=== PATIENT | male | born 1990 | race Hispanic/Latino ===

== ENCOUNTER 2022-11-15 14:35 | Inpatient (IN) | payer OTHER ==
[~2022-11-15] VITALS: Ht 177.8 cm; Wt 82.8 kg
[2022-11-15] MEDS ORDERED: DILTIAZEM 25MG INJ IVP PRN (15:00)
[2022-11-15 15:06] LABS: AMPHET/METH SCREEN,URINE NEGATIVE (NEGATIVE); BARBITURATE SCREEN, URINE NEGATIVE (NEGATIVE); BENZODIAZEPINES SCREEN,URINE NEGATIVE (NEGATIVE); CANNABINOID SCREEN,URINE NEGATIVE (NEGATIVE); COCAINE SCREEN,URINE NEGATIVE (NEGATIVE); OPIATE SCREEN,URINE NEGATIVE (NEGATIVE); PHENCYCLIDINE SCREEN,URINE NEGATIVE (NEGATIVE)
[2022-11-15 16:17] LABS: BASOPHILS % (AUTO) 0.6 % (0.0-5.0); EOSINOPHILS % (AUTO) 2.3 % (0.0-8.0); HEMATOCRIT 43.1 % (42-54); LYMPHOCYTES % (AUTO) 26.7 % (21.0-51.0); MEAN CORPUSCULAR HEMOGLOBIN 28.5 pg (27.0-33.0); MEAN CORPUSCULAR HGB CONC 33.6 g/dL (32.0-36.0); MEAN CORPUSCULAR VOLUME 84.8 fL (79-99); MONOCYTES % (AUTO) 9.9 % (3.0-13.0); NEUTROPHILS % (AUTO) 59.9 % (40.0-77.0); PLATELET COUNT (AUTO) 189 K/uL (130-400); RED BLOOD CELL COUNT(AUTO) 5.08 MIL/uL (4.50-6.20); WHITE BLOOD COUNT (AUTO) 6.5 K/uL (4.8-10.8)
[2022-11-15 16:31] LABS: CREATININE 0.9 mg/dL (0.5-1.5); POTASSIUM 3.7 mmol/L (3.5-5.1)
[2022-11-15 16:44] LABS: ALBUMIN 3.7 g/dL (3.5-5.0); MAGNESIUM 1.8 mg/dL (1.80-2.40); THYROID STIMULATING HORMONE 1.02 uIU/mL (0.36-3.74); TOTAL PROTEIN, SERUM 7.3 g/dL (6.0-8.3)
[2022-11-15] MEDS ORDERED: ACETAMINOPHEN 500 MG TABLET PO PRN (17:30)
[2022-11-15] MEDS: 0.9%NACL 1000ML 500 ML IV SCH (18:01)
[2022-11-15 18:16] LABS: HEMOGLOBIN A1C 5.7 % (4.0-6.0)
[2022-11-16] MEDS: 0.9%NACL 1000ML 500 ML IV SCH ×3 (00:10→13:05)
[2022-11-16 07:13] LABS: BASOPHILS % (AUTO) 0.7 % (0.0-5.0); EOSINOPHILS % (AUTO) 3.4 % (0.0-8.0); HEMATOCRIT 44.9 % (42-54); LYMPHOCYTES % (AUTO) 25.5 % (21.0-51.0); MEAN CORPUSCULAR HEMOGLOBIN 28.5 pg (27.0-33.0); MEAN CORPUSCULAR HGB CONC 33.2 g/dL (32.0-36.0); MEAN CORPUSCULAR VOLUME 85.9 fL (79-99); MONOCYTES % (AUTO) 9.1 % (3.0-13.0); NEUTROPHILS % (AUTO) 60.7 % (40.0-77.0); PLATELET COUNT (AUTO) 200 K/uL (130-400); RED BLOOD CELL COUNT(AUTO) 5.23 MIL/uL (4.50-6.20); RED CELL DISTRIBUTION WIDTH 13.2 % (11.0-15.5); WHITE BLOOD COUNT (AUTO) 6.7 K/uL (4.8-10.8)
[2022-11-16 07:27] LABS: CREATININE 0.8 mg/dL (0.5-1.5); MAGNESIUM 1.8 mg/dL (1.80-2.40); POTASSIUM 3.6 mmol/L (3.5-5.1)
[2022-11-16] MEDS ORDERED: POTASSIUM CHLORIDE 10% ELIXIR 20 MEQ/15 ML UDCUP PO PRN (08:00)
[2022-11-16] MEDS ORDERED: ONDANSETRON 4MG INJ IVP PRN (08:00)
[2022-11-16] MEDS ORDERED: MAGNESIUM 2GM PREMIX 50ML 50 ML IV PRN (08:00)
[2022-11-16] MEDS ORDERED: POTASSIUM CHLORIDE 20MEQ/100ML 100 ML IV PRN (08:00)
[2022-11-16] MEDS ORDERED: KCL 20 MEQ ERTAB PO PRN (08:00)
[2022-11-16] MEDS: LISINOPRIL 5 MG TABLET PO SCH ×2 (08:24→11:00)
[2022-11-16] MEDS ORDERED: FAMOTIDINE 20MG TAB PO SCH (09:00)
[2022-11-16] MEDS ORDERED: LISINOPRIL 5 MG TABLET PO ONE (09:00)
[2022-11-16 09:15] VITALS: BP 152/93
[2022-11-16 12:00] VITALS: BP 151/95
[2022-11-16 16:00] VITALS: BP 147/87
[2022-11-16] MEDS ORDERED: DILTIAZEM 180MG SR CAP PO SCH (16:00)
[2022-11-16] MEDS ORDERED: DILT-37 PO (16:36)
== END 2022-11-16 18:20 | disposition home or self-care (01) | DRG 310 ==
LOC: EDBD 14:35 → EDH 14:35 → EDHIP 14:36 → 4CH 11-16 09:15
PROVIDERS: ADMIT Internal Medicine; ATTEND Internal Medicine
DX: I47.1 Supraventricular tachycardia (principal); I10 Essential (primary) hypertension; T67.5XXA Heat exhaustion, unspecified, initial encounter; F17.210 Nicotine dependence, cigarettes, uncomplicated; Z91.148 Patient's other noncompliance with medication regimen for other reason; X30.XXXA Exposure to excessive natural heat, initial encounter
CPT/HCPCS: 36415; 71045; 80048; 80053; 80305; 82550; 83036; 83605; 83735; 83874; 84443; 84484; 85025; 93005; G0378; J3475; J7030